=== PATIENT | female | born 1965 | race Caucasian/White ===

== ENCOUNTER 2023-10-07 06:56 | Inpatient (IN) ==
--- NOTE | 2023-09-09 12:31 | PAT Medication Instructions ---
Medication Instructions Date of Service September 09, 2023 Home Medications albuterol sulfate 90 mcg/actuation aerosol inhaler 2 puff inhalation QID PRN SOB/wheezing esomeprazole magnesium 20 mg tablet,delayed release (Nexium 24HR) 20 mg PO UD PRN GERD MEDICATION INSTRUCTIONS: Continue as directed albuterol sulfate 90 mcg/actuation aerosol inhaler 2 puff inhalation QID PRN SOB/wheezing (use if needed; BRING TO HOSPITAL) Take morning of surgery With a small sip of water, OTHERWISE NOTHING TO EAT OR DRINK AFTER MIDNIGHT: esomeprazole magnesium 20 mg tablet,delayed release (Nexium 24HR) 20 mg PO UD PRN GERD Other Notes If you have any questions please call us at [phone] or [phone] or [phone] or [phone]
--- NOTE | 2023-09-18 09:21 | Anesthesiology Consultation ---
Date of Service September 18, 2023 Assessment & Plan (1) Encounter for pre-operative examination: - Case discussed in detail with Dr. Trejo who advised patient is acceptable to proceed without further evaluation or testing from his standpoint. - spinal cord stimulator: patient aware to bring remote to hospital DOS. Chart Review Chart Review: Acceptable Risk for Surgery and Patient seen in Pre Admission Testing Teaching & Discussion Pre-Anesthesia Teaching/Discussion Notes: Instructed NPO after midnight before surgery, except medications with 15 cc of water. Medication instructions provided according to the PAT guidelines. History Surgery Operation Date: 10/07/23 07:45 Proposed Procedures p L5-S1 Decompression and Fusion with Spinal Cord Monitoring - Mack Gtz, Height/Weight Height: 5 ft 7 in Weight: 68.039 kg Allergies Allergy/AdvReac Type Severity Reaction Status Date / Time adhesive Allergy allen skin Verified 09/09/23 11:21 amoxicillin [From Augmentin] Allergy Gastrointestinal Verified 09/09/23 11:21 Upset clavulanic acid Allergy Gastrointestinal Verified 09/09/23 11:21 [From Augmentin] Upset latex Allergy allen skin Verified 09/09/23 11:21 nickel Allergy swelling, Verified 09/18/23 09:40 irritation Medications Home Medications Medication Instructions Recorded Confirmed Last Taken albuterol sulfate 90 mcg/actuation 2 puff inhalation QID PRN 09/09/23 09/09/23 Unknown aerosol inhaler SOB/wheezing esomeprazole magnesium 20 mg 20 mg PO UD PRN GERD 09/09/23 09/09/23 Unknown tablet,delayed release (Nexium 24HR) Past Medical History Medical History (Updated 09/18/23 @ 13:41 by Susy Krishnamurthy PA-C) Asthma controlled, stable per pt; last rescue inhaler use more than 1 year ago GERD (gastroesophageal reflux disease) controlled, stable per pt Hiatal hernia History of anesthesia reaction 2020-[facility] [place] w/stimulator placement "either had low blood oxygen/pulse, can't remember what exactly happened" patient states was discharged same day History of endometriosis Neurostimulator device in situ 2020, [facility] [place] cardoza/ dr. diaz; advised to bring remote Slow to wake up after anesthesia "after 1 surgery years ago at [facility]" Thyroid nodule monitoring; had bx "couple years ago, benign" Patient denies h/o stroke, seizures, heart attack, heart failure, DM, HTN, blood clots/DVTs or blood transfusions. Exercise / Class Metabolic Activity III < 4 Walking/Shop/Light housework (shortness of breath with usual activities ongoing for many years per pt; denies change or worsening; denies chest discomfort) Past Surgical History Surgical History (Updated 09/18/23 @ 09:46 by Susy Krishnmaurthy PA-C) History of esophagogastroduodenoscopy (EGD) History of lumpectomy of left breast x2>benign findings Hx of colonoscopy Hx of laparoscopy x 5 or 6; endometriosis Hx of tooth extraction wears top denture Hx of total hysterectomy with removal of both tubes and ovaries Hx of wisdom tooth extraction Past Anesthesia History No Hx of Anesthesia Complications and No Family Hx of Anesthesia Complications History of PONV History of PONV (denies needing scop patch) and Hx of Motion Sickness Social History Smoking Status: Current some day smoker (-advised) Smoking cigarettes per day: vapes occasionally Do You Dip or Chew Tobacco: No Smoking End Date: quit 2019 Hx Alcohol Use: Yes Alcohol type: beer alcohol intake frequency: holidays/special occasions only Hx Substance Use: No substance use type: does not use Review of Systems Snoring, denies witnessed apneas-negative sleep study per patient. Patient denies chest pain, fever, chills, cough, wheezing, or palpitations. Physical Exam Vital Signs Vitals BP 134/75 P 69 TEMP 98.4 SP02 98% on RA RESP 18 Physical Patient resting comfortably in chair in no acute distress, alert and oriented, responding appropriately throughout visit Full cervical extension range of motion without pain TMD 3.5 finger breadths Mallampati Score 2 Dentition: full upper denture, denies chipped or loose teeth, caps/crowns, implants or bridges Lungs: normal respiratory effort. Good air movement, clear throughout to auscultation, no adventitious breath sounds Cardiac: regular rate and rhythm, no murmurs noted Carotid arteries: negative bruit bilat Lab Results Anesthesia Preop Results Results Anesthesia Widget: WBC 5.48 K/ul (4.8-10.8) 09/18/23 Hgb 13.0 g/dl (12.0-16.0) 09/18/23 Hct 39.6 % (37.0-47.0) 09/18/23 Plt 239 K/uL (130-400) 09/18/23 Na 138 mmol/L (136-145) 09/18/23 K 4.2 mmol/L (3.5-5.1) 09/18/23 Cl 104 mmol/L (98-107) 09/18/23 CO2 28 mmol/L (21-32) 09/18/23 BUN 16 mg/dl (6-23) 09/18/23 Creat 0.98 mg/dl (0.6-1.2) 09/18/23 Glucose Level 100 mg/dl (70-99(Fasting)) H 09/18/23 PT 10.7 Seconds (9.0-12.0) 09/18/23 PTT 27 Seconds (21-31) 09/18/23 INR 1.0 (0.9-1.1) 09/18/23 Urine Color Yellow 09/18/23 Urine Appearance Clear (Clear) 09/18/23 Urine pH 6.5 (4.5-7.5) 09/18/23 Urine Specific Dexter 1.010 (1.000-1.030) 09/18/23 Urine Protein Negative (Negative) 09/18/23 Urine Glucose (UA) Negative (Negative) 09/18/23 Urine Ketones Negative (Negative) 09/18/23 Urine Blood Negative (Negative) 09/18/23 Urine Nitrite Negative (Negative) 09/18/23 Urine Bilirubin Negative (Negative) 09/18/23 Urine Urobilinogen Negative (Negative) 09/18/23 Urine Leukocyte Esterase Negative (Negative) 09/18/23 Blood Type A Positive 09/18/23 Antibody Screen NEGATIVE 09/18/23 Testing Electrocardiogram Date: 09/18/23 Sinus bradycardia with sinus arrhythmia, rate 55 bpm Low voltage QRS RBBB Chest X-Ray Date: 09/18/23 No active disease in the chest. Echocardiogram Date: 07/04/20 EF 60% Grade I diastolic dysfunction No significant valvular pathology Stress Test Date: 07/04/20 Lexiscan stress EG was without changes diagnostic for myocardial ischemia. Mild breast attenuation and increased liver uptake. Good quality study. Normal gated MPI wall motion and EF. EF 65%. There are no significant rest or stress associated MPI defects. No evidence of myocardial ischemia or infarct. Low risk study. No prior studies.
[2023-10-07] MEDS: LR 60ML/HR IV SCH (08:02)
[2023-10-07] MEDS: LR 15ML/HR IV SCH (08:03)
[2023-10-07] MEDS: VANCOMYCIN HCL 1,000 MG/270 ML BAG IV SCH (08:03)
[2023-10-07] MEDS: GABAPENTIN 600 MG DOSE PO SCH (08:06)
[2023-10-07] MEDS: ACETAMINOPHEN 500 MG TAB PO SCH (08:06)
[2023-10-07] MEDS ORDERED: fentaNYL citrate PF 100 MCG/2 ML VIAL ONE ×2 (08:32→10:19)
[2023-10-07] MEDS ORDERED: MIDAZOLAM HCL 1 MG/ML 2ML VIAL ONE (08:32)
[2023-10-07] MEDS ORDERED: ATROPINE SULFATE 0.1 MG/ML 10ML SYR IV PRN (08:47)
[2023-10-07] MEDS ORDERED: PROMETHAZINE HCL 6.25 MG in SODIUM CHLORIDE 0.9% 50 ML IV PRN (08:47)
[2023-10-07] MEDS ORDERED: ONDANSETRON INJ 2 MG/ML 2 ML VIAL IV PRN ×2 (08:47→13:17)
[2023-10-07] MEDS ORDERED: ePHEDrine sulfate 50 MG/ML AMP IV PRN (08:47)
[2023-10-07] MEDS: SCOPOLAMINE 1 MG/72 HR TDSY PATCH TD ONE ×2 (08:50→09:31)
--- NOTE | 2023-10-07 09:26 | History & Physical Report ---
Date of Service October 07, 2023 Assessment & Plan (1) Neurogenic claudication due to lumbar spinal stenosis: Plan: L5-S1 decompression and fusion History of Present Illness Chief Complaint: Back and leg pain Primary Care Provider: Clari Leach This is a 58-year-old female presents with chronic persistent back and leg pain after failing course of nonoperative care she is here for surgical intervention. Allergies Allergy/AdvReac Type Severity Reaction Status Date / Time adhesive Allergy allen skin Verified 10/07/23 07:41 amoxicillin [From Augmentin] Allergy Gastrointestinal Verified 10/07/23 07:41 Upset clavulanic acid Allergy Gastrointestinal Verified 10/07/23 07:41 [From Augmentin] Upset latex Allergy allen skin Verified 10/07/23 07:41 nickel Allergy swelling, Verified 10/07/23 07:41 irritation Home Medications Medication Instructions Recorded Confirmed Type albuterol sulfate 90 mcg/actuation 2 puff inhalation QID PRN 09/09/23 10/07/23 History aerosol inhaler SOB/wheezing esomeprazole magnesium 20 mg 20 mg PO UD PRN GERD 09/09/23 10/07/23 History tablet,delayed release (Nexium 24HR) Past Med/Surg History Problem List (Updated 10/07/23 @ 09:26 by Mack Gtz DO) Neurogenic claudication due to lumbar spinal stenosis Medical History (Updated 10/07/23 @ 09:26 by Mack Gtz DO) History of endometriosis History of anesthesia reaction 2020-[facility] [place] [facility]stimulator placement "either had low blood oxygen/pulse, can't remember what exactly happened" patient states was discharged same day Neurostimulator device in situ 2020, [facility] [place] cardoza/ dr. diaz; advised to bring remote Slow to wake up after anesthesia "after 1 surgery years ago at [facility]" Hiatal hernia GERD (gastroesophageal reflux disease) controlled, stable per pt Thyroid nodule monitoring; had bx "couple years ago, benign" Asthma controlled, stable per pt; last rescue inhaler use more than 1 year ago Surgical History History of lumpectomy of left breast x2>benign findings Hx of laparoscopy x 5 or 6; endometriosis Hx of total hysterectomy with removal of both tubes and ovaries History of esophagogastroduodenoscopy (EGD) Hx of colonoscopy Hx of wisdom tooth extraction Hx of tooth extraction wears top denture Social History Smoking Status: Current some day smoker (-advised) Tobacco Type: E-cigarettes / Vaping Cigarettes Per Day: vapes occasionally; Smoking End Date: quit cig2019; Second Hand Exposure: No; Do You Dip or Chew Tobacco: No; Tobacco Cessation Education Requested by Patient: No Hx Alcohol Use: Yes Alcohol type: beer Hx Substance Use: No Preferred Language: Georgian Communication Ability: Effective Control Systems Specialist Required: No Beliefs That Will Affect Care: None Current Living Situation: Spouse Other Information That Helps Us Care for You: No Feels Safe at Home: Yes Safety Concerns: Feels Safe At This Time Assistive Devices: Denture - Upper and Glasses Physical Exam Physical Exam: Patient is alert and oriented Heart regular in rhythm lungs clear Results & Data Results & Data Vital Signs (Past 12 Hours) Vital Signs Temp Pulse Resp BP Pulse Ox O2 Del Method 10/07/23 07:42 36.7 C 62 20 142/76 H 99 Room Air
--- NOTE | 2023-10-07 09:26 | History & Physical Bridge Note ---
Date of Service October 07, 2023 History & Physical Bridge Note I have examined the patient, reviewed the History & Physical and in the interval since the performance of the History & Physical I have noted the following changes of clinical significance: no changes noted
[2023-10-07] MEDS ORDERED: KETAMINE HCL 10MG/ML SYR ONE (10:16)
[2023-10-07] MEDS ORDERED: ONDANSETRON INJ 2 MG/ML 2 ML VIAL ONE (10:17)
[2023-10-07] MEDS ORDERED: ROCURONIUM BROMIDE 10 MG/ML 5 ML VIAL IV ONE (10:17)
[2023-10-07] MEDS ORDERED: LARYING-O-JET KIT (LTA) ONE (10:17)
[2023-10-07] MEDS ORDERED: PROPOFOL IV EMULSION 10 MG/ML 20 ML VIAL IV ONE (10:17)
[2023-10-07] MEDS ORDERED: LIDOCAINE 2% 2 ML VIAL/AMP(20MG/ML) INFIL ONE (10:17)
[2023-10-07] MEDS ORDERED: DEXAMETHASONE SOD INJ 4 MG/ML VIAL ONE (10:17)
[2023-10-07] MEDS ORDERED: ePHEDrine sulfate 50 MG/5 ML SYR ONE (10:18)
[2023-10-07] MEDS ORDERED: SUGAMMADEX SODIUM 200 MG/2 ML VIAL IV ONE (10:18)
[2023-10-07] MEDS: ceFAZolin 330 MG/ML 1 GM VIAL ONE (11:08)
[2023-10-07] MEDS: BUPIVACAINE/EPINEPHRINE 0.25% 1:200,000 30 ML VIAL ONE (11:08)
[2023-10-07] MEDS: FLOSEAL HEMOSTATIC MATRIX 10ML TOP ONE (11:09)
--- NOTE | 2023-10-07 11:26 | Operative Report ---
Post Operative Report Pre & Post Diagnosis Operation Date: 10/07/23 09:35 Pre-Op Diagnosis: Neurogenic claudication due to lumbar spinal stenosis Post-Op Diagnosis: Neurogenic claudication due to lumbar spinal stenosis I identified the patient and participated in the time-out.: Yes Procedure Operation Date: 10/07/23 09:35 Actual Procedures #1 lumbar decompression with bilateral medial facetectomies and foraminotomies L4-L5 L5-S1. #2 posterior spinal fusion L5-S1. #3 placed posterior instrumentation L5-S1. #4 interbody fusion L5-S1. #5 placement of Spira 12 x 26 mm x 2 at L5-S1. #6 placement locally harvested morselized autograft in the posterior gutters. #7 placement infuse collagen sponge combined with Koros in the posterior lateral gutters and Morpheus bone graft interbody spaces. Surgeon Mack Gtz DO Flagger Ruth Mejia Estimated Blood Loss 100 Findings Consistent with Post-Op Diagnosis Specimens None Indications This is a 58-year-old female presents problems diagnosis of failed course of nonoperative care she is here for surgical invention. Description of Procedure Patient was met with identified informed consent obtained. Patient was then taken to the operative suite underwent patient placed in a prone position on the Landon table top the Demetrio frame. All bony promises well-padded eyes inspected to ensure no external pressure placed upon the. This point the lumbar spine was prepped and draped in normal sterile fashion. Sharp dissection with the assistance of Bovie cautery was performed down to exposing the lamina and transverse processes of L5 and sacral ala bilaterally. From caudal to cephalad fashion complete laminectomy L5 was performed including bilateral medial facetectomies and foraminotomies followed by partial laminectomy of L4 including bilateral medial facetectomies at L4-L5 to address all spinal stenosis. Pedicle screws were then placed and L5-S1 bilaterally with assistance of fluoroscopy in the process thania placed. By way of a trans foraminal approach and right a discectomy was performed at L5-S1 endplates guided to subcortical bleeding bone and a 12 x 26 mm spiral cage filled with Morpheus bone graft tapped in position. Then proceeded to the left transforaminal region at L5-S1. I completed the discectomy endplates guided to subcortical bleeding bone and a second 12 x 26 mm spiral cage filled Morpheus bone graft tapped in position. The rods were then compressed locked in final position bilaterally. The transverse processes of L5 and the sacral ala burred to subcortical bleeding bone. Infuse collagen sponge combined with Koros and local autograft placed in the posterior gutters. 15 round BOSTON inserted. Incision was then closed with 1 Vicryl in the fascia 2-0 Vicryl subcutaneously and 4 Monocryl for final skin closure. Steri-Strips sterile dressing placed. Patient awakened taken to PACU in stable condition. Please note spinal cord monitoring visualized at the procedure no changes noted. Lastly Ruth Mejia was present at the entire surgeon while the patient positioning complex portions of the surgery and final skin closure. I attest to the content of the Intraoperative Record and any orders documented therein. Any exceptions are noted below.
--- NOTE | 2023-10-07 11:54 | Fluoroscopy Report ---
FL lumbar spine 2-3V CLINICAL HISTORY: L5-S1 DECOMPRESSION AND FUSION COMPARISON STUDY: None. FLUOROSCOPY TIME: 16 seconds FLUOROSCOPY IMAGES: 2 Ka,r: 11.8 mGy FINDINGS: Posterior decompression and fusion at L5-S1 with pedicle screws and rods. The hardware appe ars intact. Disc spacers are placed. IMPRESSION: Fluoroscopic assistance as above. ACT 112: Negative or not required by law. Electronically signed by: Joe Roth M.D. 10/07/2023 11:53 AM
[2023-10-07] MEDS: fentaNYL citrate PF 100 MCG/2 ML VIAL IV PRN (11:55)
[2023-10-07] MEDS: HYDROmorphone INJ 2 MG/ML SYR/VIAL IV PRN (12:10)
--- NOTE | 2023-10-07 12:53 | Anesthesiology Progress Note ---
Date of Service October 07, 2023 Anesthesia Post Procedure Vital Signs Vital Signs: Temp Pulse Resp BP Pulse Ox O2 Del Method O2 Flow Rate 10/07/23 12:40 60 14 112/60 95 Nasal Cannula 2 10/07/23 12:30 70 16 133/70 97 Nasal Cannula 2 10/07/23 12:20 69 12 122/59 L 95 Nasal Cannula 2 10/07/23 12:10 64 12 124/60 94 Oxymask 3 10/07/23 12:00 60 12 132/66 97 Oxymask 3 10/07/23 11:50 78 18 132/64 99 Oxymask 6 10/07/23 11:43 85 16 134/65 98 Oxymask 6 10/07/23 07:42 36.7 C 62 20 142/76 H 99 Room Air Pain Intensity Buttock: Pain Intensity: 6 Back: Pain Intensity: 7 Transfer of Care Handoff Completed per policy Notes Mental Status: alert / awake / arousable Patient Amnestic to Procedure: Yes Nausea / Vomiting: adequately controlled Pain: adequately controlled Airway Patency, RR, SpO2: stable & adequate BP & HR: stable & adequate Hydration State: stable & adequate Anesthetic Complications: no major complications apparent
[2023-10-07] MEDS ORDERED: ACETAMINOPHEN 500 MG TAB PO PRN (13:17)
[2023-10-07] MEDS ORDERED: HYDROmorphone INJ 1 MG/ML SYRINGE IV PRN (13:17)
[2023-10-07] MEDS ORDERED: METOCLOPRAMIDE HCL INJ 5 MG/ML 2 ML VIAL IV PRN (13:17)
[2023-10-07] MEDS ORDERED: MAGNESIUM HYDROXIDE SUSP 30 ML UDC PO PRN (13:17)
[2023-10-07] MEDS ORDERED: LORazepam 0.5 MG in SYRINGE 0.25 ML IV PRN (13:17)
[2023-10-07] MEDS ORDERED: diphenhydrAMINE Capsule 25 MG CAP PO PRN (13:17)
[2023-10-07] MEDS ORDERED: SOD PHOSPHATE/SOD BIPHOSPHATE ENEMA 132 ML BTL PR PRN (13:17)
[2023-10-07] MEDS ORDERED: PROMETHAZINE HCL 12.5 MG in SODIUM CHLORIDE 0.9% 50 ML IV PRN (13:17)
[2023-10-07] MEDS ORDERED: ACETAMINOPHEN 1,000 MG/100 ML VIAL IV PRN (13:17)
[2023-10-07] MEDS ORDERED: DO NOT ADMINISTER PNEUMOCOCCAL VACCINE PRN (13:17)
[2023-10-07] MEDS ORDERED: DO NOT ADMINISTER FLU VACCINE PRN (13:17)
[2023-10-07] MEDS ORDERED: HYDROmorphone INJ 0.5 MG/0.5 ML SYR IV PRN (13:17)
[2023-10-07] MEDS ORDERED: FAMOTIDINE 20 MG TAB PO PRN (13:17)
[2023-10-07] MEDS ORDERED: NALOXONE HCL 0.4 MG/1 ML VIAL/CARP IV PRN (13:17)
[2023-10-07] MEDS ORDERED: LORazepam 0.5 MG TAB PO PRN (13:17)
[2023-10-07] MEDS ORDERED: bisacodyL 10 MG SUPP PR PRN (13:17)
[2023-10-07] MEDS ORDERED: ONDANSETRON 4 MG OD TAB PO PRN (13:17)
[2023-10-07] MEDS ORDERED: ALBUTEROL HFA 8 GM INHALER INH PRN (13:17)
[2023-10-07] MEDS ORDERED: ALUMINUM/MAGNESIUM SUSP 30 ML UDC PO PRN (13:17)
[2023-10-07] MEDS: LACTATED RINGER'S 1,000 ML IV SCH (13:20)
[2023-10-07] MEDS ORDERED: PANTOprazole 40 MG TAB PO PRN (13:38)
[2023-10-07] MEDS: CHECK SCOPOLAMINE PATCH PLACEMENT SCH (15:19)
[2023-10-07] MEDS: CLINDAMYCIN/D5W 600 MG/50 ML BAG IV SCH (18:33)
[2023-10-07] MEDS ORDERED: COUGH DROP (SUGAR FREE) LOZ 24 LOZ/1 BOX BUCCAL STA (19:09)
[2023-10-07] MEDS: COUGH DROP (SUGAR FREE) LOZ 24 LOZ/1 BOX BUCCAL ONE (19:10)
[2023-10-07] MEDS: oxyCODONE HCL IR 5 MG TAB (IMMEDIATE RELEASE) PO PRN (21:34)
[2023-10-07] MEDS: DOCUSATE SODIUM/SENNA 50/8.6MG TAB PO SCH (21:34)
[2023-10-08] MEDS: POLYETHYLENE (MIRALAX) 17 GM PACK PO SCH (05:50)
[2023-10-08 07:17] LABS: Basophils # (auto) 0.02 K/uL (0.00-0.20); Basophils % (auto) 0.2 %; Hematocrit (blood only) 33.1 % (37.0-47.0); Immature Granulocytes # (auto) 0.05 K/uL (0.01-0.20); Immature Granulocytes % (auto) 0.4 %; Lymphocytes # (auto) 1.24 K/uL (1.20-3.40); Lymphocytes % (auto) 10.4 %; Mean Corpuscular Hemoglobin 30.3 pg (25.0-34.0); Mean Corpuscular Hgb Conc 33.2 g/dL (32.0-36.0); Mean Corpuscular Volume 91.2 fL (80.0-100.0); Mean Platelet Volume 12.2 fL (9.4-12.4); Monocytes # (auto) 0.82 K/uL (0.11-0.59); Monocytes % (auto) 6.9 %; Neutrophils # (auto) 9.83 K/uL (1.40-6.50); Neutrophils % (auto) 82.1 %; Platelet Count 222 K/uL (130-400); RDW Coefficient of Variation 13.2 % (11.5-14.5); RDW Standard Deviation 43.6 fL (36.4-46.3); Red Blood Count 3.63 M/uL (4.20-5.40); White Blood Count 11.96 K/ul (4.8-10.8)
[2023-10-08 07:35] LABS: BUN Creatinine Ratio 19.1 (10-20); Creatinine Clr Calc Pharmacy 68.6 ml/min; Est GFR (Non-African American) 72.5 ml/min; Potassium 4.4 mmol/L (3.5-5.1)
[2023-10-08] MEDS: dexAMETHasone 6 MG in SYRINGE 0 ML IV SCH (08:53)
--- NOTE | 2023-10-08 09:49 | Orthopedic Progress Note ---
Date of Service October 08, 2023 Assessment & Plan (1) Neurogenic claudication due to lumbar spinal stenosis: Plan: At this time we will continue physical therapy monitor her BOSTON output anticipate discharge home in the next few days. Admission and Anticipated Discharge Date Admission Date: October 07, 2023 Subjective Back pain controlled leg pain improved Physical Exam Physical Exam: Patient is up and ambulating halls. She is constricted testing. Appears comfortable. Results & Data Vital Signs (Past 12 Hours) Vital Signs Temp Pulse Resp BP Pulse Ox O2 Del Method 10/08/23 07:25 36.3 C L 55 L 16 123/67 97 Room Air 10/08/23 03:21 36.5 C 73 18 108/65 95 Room Air 10/07/23 22:33 36.6 C 67 18 93/52 L 97 Room Air
[2023-10-08] MEDS ORDERED: Nursing to Pharmacy Communication SCH ×2 (16:45→17:00)
[2023-10-09] MEDS: hydrOXYzine HCl 25 MG TAB PO PRN (01:50)
[2023-10-09] MEDS: traMADol HCL 50 MG TABLET PO PRN (01:51)
--- NOTE | 2023-10-09 09:58 | Discharge Summary ---
Date of Service October 09, 2023 Admission HPI Per Admitting Provider This is a 58-year-old female presents with chronic persistent back and leg pain after failing course of nonoperative care she is here for surgical intervention. Principal Diagnosis Lumbar spinal stenosis with neurogenic claudication Discharge Data Allergies Allergy/AdvReac Type Severity Reaction Status Date / Time adhesive Allergy allen skin Verified 10/07/23 07:41 amoxicillin [From Augmentin] Allergy Gastrointestinal Verified 10/07/23 07:41 Upset clavulanic acid Allergy Gastrointestinal Verified 10/07/23 07:41 [From Augmentin] Upset latex Allergy allen skin Verified 10/07/23 07:41 nickel Allergy swelling, Verified 10/07/23 07:41 irritation Procedures Performed Operation Date: 10/07/23 09:35 Actual Procedures p L5-S1 Decompression and Fusion with Spinal Cord Monitoring(Not Applicable) - Mack Gtz DO Ordered Studies 10/07/23 09:35 FL lumbar spine 2-3V Routine Hospital Course (1) Neurogenic claudication due to lumbar spinal stenosis: Patient underwent lumbar decompression fusion tolerated as well as taken to the orthopedic floor postoperatively. Postop patient progressed appropriately. Ambulating well. Pain well-controlled. Excellent strength testing. BOSTON drain decreased appropriately. Subsidy discharged home. Discharge orders and instructions found in chart for further review. Total Time Total Time Spent Total Time Spent (In Minutes): 20 minutes Discharge Plan Discharge Items Patient Disposition: Home - Self-Care Reason For Visit: Lumbar Foraminal Stenosis, Lumbar Radiculopathy, C Discharge Diagnosis: Lumbar spinal stenosis with radiculopathy Activity: As commented below Non-emergency contact: Primary Care Provider Call non-emergency contact if: you have any medication questions Follow-up/Referrals: Clari Leach [Primary Care Provider] - Diet: Regular Addtl Attending Provider Instructions: ACTIVITY RECOMMENDATIONS: SELF CARE INSTRUCTIONS AFTER THORACIC/LUMBAR FUSIONS 1. You may walk to your tolerance. It is good exercise for your legs and back. Expect some back and intermittent leg aches and pains. 2. You may perform "counter-top" level activities (make a sandwich, charlie with a project, etc.). 3. No bending or lifting of more than 10 pounds or back twisting of any nature (roll like a log when turning in bed). 4. You may ride in a car for 20-30 minutes at a time. No driving until after your first visit with your doctor. 5. Frequent changes of position and restricting sitting to 30 minutes at a time will help limit the amount of back spasms and stiffness you may experience. 6. You may discontinue the use of ambulatory aids (cane, crutches, etc.) once your strength and confidence allow. 7. You may product coordinator the shower and let water strike your incision when you arrive home at least once daily. Do not take a tub bath, sit in a hot tub or go into a swimming pool until after your first recheck in the office. SPECIAL CARE INSTRUCTIONS: VERY IMPORTANT TO READ AND REVIEW A. Your surgical incision has been closed with a cosmetic suture under the skin that will dissolve in about 6 weeks. In 14 days, you can use a pair of clean scissors and cut the suture that is left outside of the skin at the ends of your incision. 1. The small skin tapes can be removed 7 days after surgery if they have not fallen off by that point. 2. You may keep the wound open to air as much as possible to promote healing after post-op day number 5 unless told otherwise by your doctor. 3. If you think the wound looks like it is becoming infected (redness or worsening drainage) and/or you are experiencing fever, chill or worsening back pain and muscle spasms, contact the office so that we may evaluate you as soon as possible. B. Complications are uncommon, but please contact us if you have any signs or symptoms of: 1. wound infection (fever higher than 102.5 degrees F, redness, separation of wound, drainage, or increasing pain from the incision) 2. blood clots in legs (pain, swelling, redness and warmth in legs) 3. urinary tract infection (fever higher than 102.5 degrees F, burning upon urination or increased frequency of urination) 4. nerve problems (inability to walk on your toes or heels, numbness, loss of bowel or bladder control) 5. any other symptoms that concern you C. Please call the office at if you have any concerns or questions about your operation or recovery. D. No smoking! Smoking drastically decreases the chance of a solid fusion. E. Do not take any anti-inflammatory medications (Indocin, Advil, Motrin, Aspirin, Naprosyn, etc.) as these may inhibit the chance of a solid fusion. Tylenol is okay to take for pain. MANAGING PAIN AFTER SPINAL SURGERY 1. Narcotic medication is intended for short-term use and will be provided for surgical pain. Surgical pain usually lasts for a period of 4-6 weeks. Narcotic medication includes Percocet, Vicodin, Darvocet, Tylenol #3 or Lortab. 2. Longer-term pain is more appropriately treated with non-narcotic medication such as Tylenol ES. 3. Muscle spasm is not appropriately treated with narcotics. Muscle relaxers such as Soma, Flexeril or Skelaxin can be used along with Tylenol ES. 4. Remember that we all live with some "aches and pains". This is not unusual or uncommon after an injury or as we get older. a. Back pain is expected and may include muscle spasms for 4 to 6 weeks after surgery. The pain should gradually improve. If the pain worsens for no apparent reason, please contact the office. b. Intermittent leg pain may also be experienced and should not be concerned about unless it worsens for no apparent reason. If so, please contact the office. 5. We will provide appropriate medication within the normal guidelines of their prescribed use. We will also be very cautious and aware of potential abuse and extended duration of patients' medication needs. a. Pain medications are for your comfort and to assist with sleep and rest so that the tissue can heal. They are not provided in order to return to normal activity and should not be used through the day. To do so or worsening pain at night can result from ongoing tissue damage and development of tolerance to the prescribed medicine. 6. Please allow 2-3 days to process refills. Prescriptions will not be mailed but must be picked up at the office. FOLLOW UP VISIT: Keep your scheduled follow-up appointment. Any questions, please call the office at . Pending Studies at Discharge: No Stand-Alone Forms: My VERTILAS, Smoking Cessation Medications and DC Order Prescriptions: New tramadol 50 mg tablet 50 mg PO Q6H PRN (Reason: pain, moderate) Qty: 30 0RF oxycodone 5 mg tablet 5 mg PO Q6H PRN (Reason: pain) Qty: 30 0RF Continued albuterol sulfate 90 mcg/actuation Hfa Aerosol Inhaler 2 puff INHALATION QID PRN (Reason: SOB/wheezing) esomeprazole magnesium [Nexium 24HR] 20 mg Tablet,Delayed Release (Dr/Ec) 20 mg PO UD PRN (Reason: GERD) Discharge Orders: Discharge Order (Routine); Ordered 10/09/23 Ordered By: Mack Gtz Admission Data Admit Date/Time: 10/07/23 11:29 Attending Provider: Mack Gtz Admit Provider: Mack Gtz Primary Care Provider: Clari Leach
== END 2023-10-09 12:00 | disposition home or self-care (01) | DRG 455 ==
LOC: ASU 06:56 → 3E 11:29